=== PATIENT | female | born 1940 | race Caucasian/White ===

== ENCOUNTER 2016-06-30 14:48 | Outpatient (CLI) | payer MEDICARE, OTHER ==
[2013-09-08 09:03] VITALS: BP 132/68
== END 2016-06-30 14:50 ==
LOC: LAB 14:48
PROVIDERS: ATTEND Physician Assistant
DX: R73.9 Hyperglycemia, unspecified (principal)
CPT/HCPCS: 36415; 83036

== ENCOUNTER 2016-07-14 13:37 | Outpatient (CLI) | payer MEDICARE, OTHER ==
[2013-09-08 09:03] VITALS: BP 132/68
--- NOTE | 2016-07-15 15:29 | OP Clinic Progress Note ---
REFERRING PHYSICIAN: Dr. Dejuan Rodney REASON FOR VISIT: This 76-year-old female has had sores on the tip of her tongue and then on the roof of her mouth that has been moderately recently. It is quite burning and tender on her tongue. She looks in her mouth and she identifies this at the tip of the tongue on the right paramedian side on the ventral surface is a small 1 to 2 mm ulcerative area. With magnification, it looks to be more of a localized inflammatory process. She also has had a lesser degree of this on the roof of the mouth on the hard palate slightly on the left paramedian area. Both of these have improved recently. Of note, the patient's is sick and has had some debilitation, although it has been over several years, it has gotten a little more stressful to her. Both of these appear to be benign lesions. I would identify them as some degree of more of a stress ulcer. Sometimes these are viral related and tend to cause more pain than a lesion might indicate. PLAN: In this case, I would tend not to biopsy them. They do not look malignant. I recommended a Maalox mouth rinse, a teaspoon maybe 3 times a day as available. She ought to go ahead and swallow it, as she states she has some stomach or gastritis types of issues. I spent some time talking with her and I tried to give her enough confidence that I do not believe a biopsy is currently indicated and she does not need to take pills in this regard. She is certainly welcomed back anytime to revisit this issue. If the issue persists long enough that it bothers her or certainly if it got worse, I would be happy to enjoin another conversation. I used a flexible fiberoptic scope transorally. I do not see any issues with the oropharynx and the tongue base or the supraglottic larynx. cc: Dr. Dejuan GTZ
== END 2016-07-14 13:40 ==
LOC: ENT 13:37
PROVIDERS: ATTEND Otolaryngology
DX: K13.70 Unspecified lesions of oral mucosa (principal)
CPT/HCPCS: G0463

== ENCOUNTER 2016-10-01 10:14 | Outpatient (CLI) | payer MEDICARE, OTHER ==
[2013-09-08 09:03] VITALS: BP 132/68
== END 2016-10-01 10:30 ==
LOC: LAB 10:14
PROVIDERS: ATTEND Internal Medicine Cardiovascular Disease
DX: I10 Essential (primary) hypertension (principal)
CPT/HCPCS: 36415; 84439; 84443; 84481

== ENCOUNTER 2017-07-14 14:12 | Outpatient (CLI) | payer MEDICARE, OTHER ==
[2013-09-08 09:03] VITALS: BP 132/68
--- NOTE | 2017-07-14 17:44 | Diagnostic Imaging Report ---
OBDULIO SOLER [facility] [id number] [facility] [id number] Report Submission Date: Jul 14, 2017 3:07:25 PM CDT Patient Study Name: LAMONT SMITH Date: Jul 14, 2017 2:30:40 PM CDT Modality Type: DX Gender: F Description: CHEST : 36 Institution: [facility] Physician: OBDULIO SOLER Examination: PA and lateral chest. History: CXR, HEMOPTYSIS, PT STATES COUGH FOR YEARS. COUGHED UP BLOOD ABOUT A WEEK AGO. NON SMOKER (Hx) Comparison exam: None provided. Findings: PA lateral chest demonstrate a normal cardiac and mediastinal silhouette. Few vascular calcifications involving the aortic arch. Chronic appearing interstitial changes. No focal infiltrate. No blunting of the costophrenic margins. Osseous structures are appropriate for age. Impression: No acute appearing pulmonary process. Given patient's reported symptoms, consider obtaining CT chest to further evaluate. Electronically signed on Jul 14, 2017 3:07:25 PM CDT by: Cecilio GTZ
== END 2017-07-14 14:18 ==
LOC: RAD 14:12
PROVIDERS: ATTEND Family Medicine
DX: R04.2 Hemoptysis (principal)
CPT/HCPCS: 71046

== ENCOUNTER 2017-11-04 07:35 | Outpatient (CLI) | payer MEDICARE, OTHER ==
[2013-09-08 09:03] VITALS: BP 132/68
[2017-11-04 07:56] LABS: MEAN CORPUSCULAR HEMOGLOBIN 33.9 pg (28.0-34.0); MEAN CORPUSCULAR VOLUME 102.2 fl (80.0-100.0)
[2017-11-04 08:43] LABS: eGFR (African) > 60; eGFR (Non-African) > 60
== END 2017-11-04 07:36 ==
LOC: LAB 07:35
PROVIDERS: ATTEND Internal Medicine Cardiovascular Disease
DX: I10 Essential (primary) hypertension (principal); R79.9 Abnormal finding of blood chemistry, unspecified; E55.9 Vitamin D deficiency, unspecified
CPT/HCPCS: 36415; 80053; 80061; 82306; 82607; 83036; 84443; 85027

== ENCOUNTER 2018-09-19 07:55 | Outpatient (CLI) | payer MEDICARE, OTHER ==
[2013-09-08 09:03] VITALS: BP 132/68
[2018-10-03 14:58] LABS: A1C 5.5 % (-5.7); HDL 57 mg/dL (>40); eGFR (Non-African) > 60
[2018-10-03 14:59] LABS: MEAN CORPUSCULAR HEMOGLOBIN 32.9 pg (28.0-34.0)
== END 2018-09-19 08:00 | disposition home or self-care (01) ==
LOC: LAB 07:55
PROVIDERS: ATTEND Internal Medicine Cardiovascular Disease
DX: I10 Essential (primary) hypertension (principal); I65.23 Occlusion and stenosis of bilateral carotid arteries; E55.9 Vitamin D deficiency, unspecified; R73.09 Other abnormal glucose
CPT/HCPCS: 36415; 80053; 80061; 82306; 83036; 84443; 85027